=== PATIENT | female | born 1970 | race Caucasian/White ===

== ENCOUNTER 2024-04-27 18:34 | Emergency (ER) | payer MEDICAID ==
[~2024-04-27] VITALS: Ht 152.4 cm; Wt 81.6 kg
[2024-04-27 18:47] VITALS: BP 143/87; PULSE 86; RESP 18; TEMP 97.5; O2SAT 94
[2024-04-27 21:05] VITALS: BP 130/80; PULSE 86; RESP 18; TEMP 97.5; O2SAT 94
== END 2024-04-27 21:05 | disposition home or self-care (01) ==
LOC: MED 18:34
DX: R04.0 Epistaxis (principal); Z00.00 Encounter for general adult medical examination without abnormal findings
CPT/HCPCS: 99281